=== PATIENT | female | born 1990 | race Caucasian/White ===

== ENCOUNTER 2016-12-03 13:34 | Emergency (ER) | payer MEDICAID ==
[2016-12-03] MEDS ORDERED: TRAMADOL 50 MG TAB ONE (14:20)
== END 2016-12-03 15:43 | disposition home or self-care (01) ==
LOC: ER 13:34
DX: S90.32XA Contusion of left foot, initial encounter (principal); W01.0XXA Fall on same level from slipping, tripping and stumbling without subsequent striking against object, initial encounter; Y92.009 Unspecified place in unspecified non-institutional (private) residence as the place of occurrence of the external cause